=== PATIENT | male | born 1955 | race Caucasian/White ===

== ENCOUNTER 2018-12-14 05:44 | Emergency (ER) | payer BC ==
--- NOTE | 2018-12-14 06:37 | EDM.PDOC ---
ED HPI GENERAL MEDICAL PROBLEM - General Chief Complaint: Genitourinary Problem Stated Complaint: NOT ABLE TO URINATE Time Seen by Provider: 12/14/18 06:20 Source of Information: Reports: Patient - History of Present Illness INITIAL COMMENTS - FREE TEXT/NARRATIVE: Patient is a 63 yo WM who has a history of BPH presented to the ED because of feeling full in his bladder. He does self cath PRN but forgot his catheter. He denies having any fever/chills,nausea/vomiting.No flank pain. Lower abdomen Pain Score (Numeric/FACES): 8 - Related Data Allergies Allergy/AdvReac Type Severity Reaction Status Date / Time No Known Allergies Allergy Verified 12/14/18 06:03 Home Meds: Home Meds Etanercept [Enbrel] 50 mg DAILY 12/14/18 [History] Folic Acid 1 mg PO DAILY 12/14/18 [History] Lansoprazole [Prevacid 24Hr] 15 mg PO DAILY 12/14/18 [History] Methotrexate 12.5 mg MO 12/14/18 [History] Tamsulosin [Tamsulosin 24 Hr] 0.4 mg PO DAILY 12/14/18 [History] Past Medical History Cardiovascular History: Reports: Blood Clots/VTE/DVT, High Cholesterol Gastrointestinal History: Reports: GERD Genitourinary History: Reports: Prostate Disorder, Renal Calculus, Retention, Urinary Musculoskeletal History: Reports: Other (See Below) Other Musculoskeletal History: psoriatic arthritis Dermatologic History: Reports: Psoriasis - Infectious Disease History Infectious Disease History: Reports: Chicken Pox, Measles, Mumps, Shingles - Past Surgical History GI Surgical History: Reports: Cholecystectomy, Colonoscopy, EGD, Hernia Repair/ Other Male Surgical History: Reports: Prostate Biopsy Musculoskeletal Surgical History: Reports: Knee Replacement, Shoulder Surgery Other Musculoskeletal Surgeries/Procedures:: R knee replacement, L shoulder rotator cuff surgery Social & Family History - Family History Family Medical History: Noncontributory - Tobacco Use Smoking Status *Q: Never Smoker - Caffeine Use Caffeine Use: Reports: Soda - Alcohol Use Days Per Week of Alcohol Use: 3 Number of Drinks Per Day: 3 Total Drinks Per Week: 9 - Recreational Drug Use Recreational Drug Use: No ED ROS GENERAL - Review of Systems Review Of Systems: See Below Constitutional: Reports: No Symptoms HEENT: Reports: No Symptoms Respiratory: Reports: No Symptoms Cardiovascular: Reports: No Symptoms Endocrine: Reports: No Symptoms GI/Abdominal: Reports: No Symptoms : Reports: Urinary Retention. Denies: Dysuria, Flank Pain, Frequency Musculoskeletal: Reports: No Symptoms Skin: Reports: No Symptoms Neurological: Reports: No Symptoms Psychiatric: Reports: No Symptoms ED EXAM, RENAL/ - Physical Exam Exam: See Below Exam Limited By: No Limitations General Appearance: Alert, WD/WN, No Apparent Distress Ears: Normal External Exam, Normal Canal, Hearing Grossly Normal, Normal TMs Nose: Normal Inspection, Normal Mucosa, No Blood Throat/Mouth: Normal Inspection, Normal Lips, Normal Teeth, Normal Gums Head: Atraumatic, Normocephalic Neck: Normal Inspection, Supple, Non-Tender, Full Range of Motion Respiratory/Chest: No Respiratory Distress, Lungs Clear, Normal Breath Sounds, No Accessory Muscle Use, Chest Non-Tender Cardiovascular: Normal Peripheral Pulses, Regular Rate, Rhythm, No Edema, No Gallop, No JVD, No Murmur, No Rub GI/Abdominal: Normal Bowel Sounds, Soft, Non-Tender, Other (fullness on the bladder area) (Male) Exam: Suprapubic Fullness Course - Vital Signs Text/Narrative:: bladder scan did show 500 ml of urine since he is afebrile,no altered LOC and just cath himself 1-2 times a year I will not check his urine for any infection. I instructed him that ifever he develops fever,chills,N/V,flank pain to follow up with his doctor because those are signs of UTI or kidney infection and patient fully understood this. Last Recorded V/S: Last Vital Signs Temp 36.1 C 12/14/18 05:48 Pulse 96 12/14/18 05:48 Resp 20 12/14/18 05:48 BP 139/101 H 12/14/18 05:48 Pulse Ox 97 12/14/18 05:48 - Orders/Labs/Meds Orders: Active Orders 24 hr Category Date Time Status Insert Urinary Catheter [OM.PC] Q24H Care 12/14/18 06:00 Ordered Urinary Catheter Assessment [RC] QSHIFT Care 12/14/18 06:30 Ordered Departure - Departure Time of Disposition: 06:35 Disposition: Home, Self-Care 01 Condition: Good Clinical Impression: Urinary retention - Discharge Information Instructions: Acute Urinary Retention, Male, [id number] Referrals: PCP,None [Primary Care Provider] - Forms: ED Department Discharge Additional Instructions: increase oral fluids continue your flomax follow up as needed - My Orders Last 24 Hours: My Active Orders 12/14/18 06:00 Insert Urinary Catheter [OM.PC] Q24H 12/14/18 06:30 Urinary Catheter Assessment [RC] QSHIFT - Assessment/Plan Last 24 Hours: My Active Orders 12/14/18 06:00 Insert Urinary Catheter [OM.PC] Q24H 12/14/18 06:30 Urinary Catheter Assessment [RC] QSHIFT
[2018-12-14 07:07] VITALS: BP 122/84
== END 2018-12-14 06:49 | disposition home or self-care (01) ==
LOC: FB.ED 05:44
DX: N40.1 Benign prostatic hyperplasia with lower urinary tract symptoms (principal); R33.8 Other retention of urine; E78.00 Pure hypercholesterolemia, unspecified; Z79.899 Other long term (current) drug therapy; Z87.442 Personal history of urinary calculi
CPT/HCPCS: 51701; 51798; 99283

== ENCOUNTER 2021-03-19 13:05 | Emergency (ER) | payer BC, OTHER ==
[2021-03-19] MEDS ORDERED: Diphtheria,Pertussis(Acell),Tetanus Vaccine 0.5 ML Syringe IM ONE (13:31)
--- NOTE | 2021-03-19 13:31 | EDM.PDOC ---
ED HPI GENERAL MEDICAL PROBLEM - General Chief Complaint: Laceration Stated Complaint: LACERATION TO HEAD Time Seen by Provider: 03/19/21 13:20 Source of Information: Reports: Patient, Family History Limitations: Reports: No Limitations - History of Present Illness INITIAL COMMENTS - FREE TEXT/NARRATIVE: Patient presented to the ED because of a head injury. He accidentally hit his head on a metal frame and sustained a shallow, 3 cm wound over the mid parietal area. There is no LOC and he wound already quit bleeding. - Related Data Allergies Allergy/AdvReac Type Severity Reaction Status Date / Time No Known Allergies Allergy Verified 12/14/18 06:03 Home Meds: Home Meds Etanercept [Enbrel] 50 mg DAILY 12/14/18 [History] Folic Acid 1 mg PO DAILY 12/14/18 [History] Lansoprazole [Prevacid 24Hr] 15 mg PO DAILY 12/14/18 [History] Methotrexate 12.5 mg MO 12/14/18 [History] Tamsulosin [Tamsulosin 24 Hr] 0.4 mg PO DAILY 12/14/18 [History] Past Medical History Cardiovascular History: Reports: Blood Clots/VTE/DVT, High Cholesterol Gastrointestinal History: Reports: GERD Genitourinary History: Reports: Prostate Disorder, Renal Calculus, Retention, Urinary Musculoskeletal History: Reports: Other (See Below) Other Musculoskeletal History: psoriatic arthritis Dermatologic History: Reports: Psoriasis - Infectious Disease History Infectious Disease History: Reports: Chicken Pox, Measles, Mumps, Shingles - Past Surgical History GI Surgical History: Reports: Cholecystectomy, Colonoscopy, EGD, Hernia Repair/Other Male Surgical History: Reports: Prostate Biopsy Musculoskeletal Surgical History: Reports: Knee Replacement, Shoulder Surgery Other Musculoskeletal Surgeries/Procedures:: R knee replacement, L shoulder rotator cuff surgery Social & Family History - Family History Family Medical History: No Pertinent Family History - Caffeine Use Caffeine Use: Reports: Soda ED ROS GENERAL - Review of Systems Review Of Systems: See Below Constitutional: Reports: No Symptoms HEENT: Reports: No Symptoms Respiratory: Reports: No Symptoms Cardiovascular: Reports: No Symptoms Endocrine: Reports: No Symptoms GI/Abdominal: Reports: No Symptoms : Reports: No Symptoms Musculoskeletal: Reports: No Symptoms Skin: Reports: Wound Neurological: Reports: No Symptoms ED EXAM, SKIN/RASH Exam: See Below Exam Limited By: No Limitations General Appearance: Alert, No Apparent Distress Eye Exam: Bilateral Eye: PERRL Ears: Normal External Exam, Normal Canal Nose: Normal Inspection, Normal Mucosa, No Blood Throat/Mouth: Normal Inspection, Normal Lips, Normal Teeth Head: Atraumatic, Normocephalic Neck: Normal Inspection, Supple, Non-Tender, Full Range of Motion Respiratory/Chest: No Respiratory Distress, Lungs Clear, Normal Breath Sounds, No Accessory Muscle Use, Chest Non-Tender Cardiovascular: Normal Peripheral Pulses, Regular Rate, Rhythm, No Edema, No Gallop, No JVD, No Murmur GI/Abdominal: Normal Bowel Sounds, Soft, Non-Tender, No Organomegaly, No Distention, No Abnormal Bruit Extremities: Normal Inspection, Normal Range of Motion, Non-Tender, Normal Capillary Refill, Slow Capillary Refill Neurological: Alert, Oriented, CN II-XII Intact Psychiatric: Normal Affect, Normal Mood Skin: Warm, Intact Course - Vital Signs Text/Narrative:: The 3 cm laceration over the mid parietal area didn't require suturing because it's shallow and has stopped bleeding Tdap Departure - Departure Time of Disposition: 13:00 Disposition: Home, Self-Care 01 Condition: Good Clinical Impression: Laceration, Head injury - Discharge Information Instructions: Laceration Care, Adult, [id number], Head Injury, Adult, [id number] Additional Instructions: Please read discharge instructions on head injury and wound care No need to apply an antibiotic ointment Do not rub the wound when you take a shower Check for infection: increasing pain,swelling, redness, pus discharge,fever etc
== END 2021-03-19 13:40 | disposition home or self-care (01) ==
LOC: FB.ED 13:05
DX: S01.01XA Laceration without foreign body of scalp, initial encounter (principal); E78.00 Pure hypercholesterolemia, unspecified; K21.9 Gastro-esophageal reflux disease without esophagitis; Z79.899 Other long term (current) drug therapy; Z23 Encounter for immunization; W22.09XA Striking against other stationary object, initial encounter
CPT/HCPCS: 90471; 90715; 99282